=== PATIENT | male | born 1945 | race Caucasian/White ===

== ENCOUNTER 2017-10-14 11:33 | Inpatient (IN) ==
[2017-10-14] MEDS ORDERED: SODIUM CHLORIDE 0.9% 500 ML IV STA (12:37)
[2017-10-14] MEDS ORDERED: ACETAMINOPHEN 500 MG TABLET PO STA (12:49)
[2017-10-14 12:56] LABS: Basophils % 0.7 % (0.0-0.8); Eosinophils # 0.1 10*3/uL (0.0-0.87); Eosinophils % 3.3 % (0.00-10.9); Hematocrit 42.5 VOL% (42.0-52.0); Hemoglobin 14.5 GM/DL (14.0-18.0); Immature Granulocytes % 0.7 %; Immature Granulocytes Absolute 0.03 #; Lymphocytes # 0.9 10*3/uL (1.4-4.0); Lymphocytes % 20.3 % (21.2-54.2); Mean Corpuscular HGB Conc 34.1 GM/DL (32-36); Mean Corpuscular Hemoglobin 33 PG (27-34); Mean Corpuscular Volume 95.3 FL (87-102); Mean Platelet Volume 9.9 FL (9.6-12.0); Monocytes # 0.4 10*3/uL (0.11-0.8); Monocytes % 9.1 % (1.7-12.7); Neutrophils # 2.8 10*3/uL (1.4-7.4); Neutrophils % 65.9 % (38.7-73.9); Platelet Count 106 T/CUMM (130-400); Red Blood Count 4.46 MC/CUMM (3.8-5.5); Red Cell Distribution Width 12.3 % (9.3-17.3); White Blood Count 4.3 T/CUMM (4-12)
[2017-10-14 13:05] LABS: PT Patient Result 10.9 SECS
[2017-10-14 13:11] LABS: Alanine Aminotransferase 45 U/L (16-61); Albumin 3.5 G/DL (3.4-5.0); Alkaline Phosphatase 70 U/L (45-117); Aspartate Amino Transferase 27 U/L (0-37); Blood Urea Nitrogen 16 MG/DL (7-18); Calcium 8.9 MG/DL (8.5-10.1); Glucose 154 MG/DL (74-106); Osmolality,Calculated 284.3 MOS/KG (273-304); Sodium 141 MMOL/L (136-145); Total Protein 6.5 G/DL (6.4-8.3); Troponin I Only < 0.015 NG/ML (0.00-0.045)
[2017-10-14] MEDS ORDERED: ACETAMINOPHEN 325 MG TABLET PO PRN (16:08)
[2017-10-14] MEDS ORDERED: GLUCAGON 1 MG VIAL IM PRN (16:08)
[2017-10-14] MEDS ORDERED: MORPHINE 4 MG/1 ML VIAL IV PRN (16:08)
[2017-10-14] MEDS ORDERED: ONDANSETRON 4 MG/2 ML VIAL IV PRN (16:08)
[2017-10-14] MEDS ORDERED: DEXTROSE 50% 25 GM/50 ML VIAL IV PRN (16:08)
[2017-10-14] MEDS: INSULIN REGULAR 100 UNIT/ML SUBCUT SCH ×2 (16:48→21:26)
[2017-10-14] MEDS: SODIUM CHLORIDE 0.9% 1,000 ML IV SCH (17:06)
[2017-10-14 17:10] LABS: Troponin I Only < 0.015 NG/ML (0.00-0.045)
[2017-10-14] MEDS ORDERED: GLIMEPIRIDE 2 MG TABLET PO SCH (21:00)
[2017-10-14] MEDS: POTASSIUM CITRATE 10 MEQ TABLET PO SCH (21:25)
[2017-10-14] MEDS: ENOXAPARIN 40 MG/0.4 ML SYRINGE SUBCUT SCH (21:25)
[2017-10-14] MEDS: LISINOPRIL 20 MG TABLET PO SCH (21:25)
[2017-10-14] MEDS: hydrALAZINE 25 MG TABLET PO SCH (21:26)
[2017-10-14] MEDS: CARVEDILOL 25 MG TABLET PO SCH (21:26)
[2017-10-14] MEDS: DOCUSATE SODIUM 100 MG CAPSULE PO SCH (21:26)
[2017-10-14 22:30] LABS: Apearance,Urine CLEAR (Clear); Bilirubin,Urine Negative (Negative); Blood, Urine Negative (Negative); Glucose,Urine (UA) Negative (Negative); Ketones,Urine Negative (Negative); Nitrite,Urine Negative (Negative); Protein,Urine Negative; RBC,Urine 1 /HPF (0-4); Squamous Epithelial Cell,Urine Occasional /HPF (0-10); Urine Color Yellow (Yellow); Urine Specific Gravity 1.013 (1.001-1.035); Urine Urobilinogen < 2.0 EU/DL (0.2-1.0); WBC,Urine 4 /HPF (0-6)
[2017-10-15 02:14] LABS: Barbiturates Screen,Urine Negative (Negative); Benzodiazepines Screen,Urine Negative (Negative); Cannabinoid Screen,Urine Negative (Negative); Opiate Screen,Urine Negative (Negative); Phencyclidine Screen,Urine Negative (Negative)
[2017-10-15 05:02] LABS: Basophils % 0.3 % (0.0-0.8); Eosinophils # 0.2 10*3/uL (0.0-0.87); Eosinophils % 4.6 % (0.00-10.9); Hematocrit 42.4 VOL% (42.0-52.0); Hemoglobin 13.8 GM/DL (14.0-18.0); Immature Granulocytes % 0.6 %; Immature Granulocytes Absolute 0.02 #; Lymphocytes % 31.2 % (21.2-54.2); Mean Corpuscular HGB Conc 32.5 GM/DL (32-36); Mean Corpuscular Hemoglobin 32 PG (27-34); Monocytes # 0.3 10*3/uL (0.11-0.8); Monocytes % 7.6 % (1.7-12.7); Neutrophils # 1.8 10*3/uL (1.4-7.4); Neutrophils % 55.7 % (38.7-73.9); Platelet Count 105 T/CUMM (130-400); Red Blood Count 4.37 MC/CUMM (3.8-5.5); Red Cell Distribution Width 12.5 % (9.3-17.3); White Blood Count 3.3 T/CUMM (4-12)
[2017-10-15 05:36] LABS: Albumin 3.2 G/DL (3.4-5.0); Bilirubin,Total 0.6 MG/DL (0.2-1.0); Calcium 8.6 MG/DL (8.5-10.1); Osmolality,Calculated 280.4 MOS/KG (273-304); Potassium 3.6 MMOL/L (3.5-5.1); Risk Ratio 3.11; Total Protein 6.5 G/DL (6.4-8.3); VLDL CHOLESTEROL 17.4 MG/DL
[2017-10-15] MEDS: SODIUM CHLORIDE 0.9% 1,000 ML IV SCH ×3 (09:30→17:16)
[2017-10-15 09:54] LABS: Troponin I Only < 0.015 NG/ML (0.00-0.045)
[2017-10-15] MEDS: POTASSIUM CITRATE 10 MEQ TABLET PO SCH ×2 (11:42→22:09)
[2017-10-15] MEDS: FUROSEMIDE 20 MG TABLET PO SCH (11:42)
[2017-10-15] MEDS: amLODIPine 5 MG TABLET PO SCH (11:42)
[2017-10-15] MEDS: MULTIVITAMIN (CENTRUM) TABLET PO SCH (11:42)
[2017-10-15] MEDS: FLUoxetine 20 MG CAPSULE PO SCH (11:42)
[2017-10-15] MEDS: PANTOPRAZOLE 40 MG TABLET PO SCH (11:42)
[2017-10-15] MEDS: ALLOPURINOL 300 MG TABLET PO SCH (11:43)
[2017-10-15] MEDS: hydrALAZINE 25 MG TABLET PO SCH ×2 (11:43→22:09)
[2017-10-15] MEDS: LISINOPRIL 20 MG TABLET PO SCH ×2 (11:43→22:09)
[2017-10-15] MEDS: LORATADINE 10 MG TABLET PO SCH (11:43)
[2017-10-15] MEDS: CARVEDILOL 25 MG TABLET PO SCH ×2 (11:43→17:03)
[2017-10-15] MEDS: INSULIN REGULAR 100 UNIT/ML SUBCUT SCH ×4 (11:44→22:02)
[2017-10-15] MEDS: DOCUSATE SODIUM 100 MG CAPSULE PO SCH ×2 (11:49→22:10)
[2017-10-15] MEDS: ENOXAPARIN 40 MG/0.4 ML SYRINGE SUBCUT SCH (22:09)
[2017-10-16 04:44] LABS: Basophils % 0.3 % (0.0-0.8); Eosinophils # 0.2 10*3/uL (0.0-0.87); Eosinophils % 4.5 % (0.00-10.9); Hematocrit 40.2 VOL% (42.0-52.0); Hemoglobin 13.7 GM/DL (14.0-18.0); Immature Granulocytes % 0.6 %; Immature Granulocytes Absolute 0.02 #; Lymphocytes # 1.2 10*3/uL (1.4-4.0); Lymphocytes % 34.5 % (21.2-54.2); Mean Corpuscular HGB Conc 34.1 GM/DL (32-36); Mean Corpuscular Hemoglobin 33 PG (27-34); Mean Corpuscular Volume 95.7 FL (87-102); Mean Platelet Volume 9.9 FL (9.6-12.0); Monocytes # 0.2 10*3/uL (0.11-0.8); Monocytes % 6.8 % (1.7-12.7); Neutrophils # 1.9 10*3/uL (1.4-7.4); Neutrophils % 53.3 % (38.7-73.9); Platelet Count 100 T/CUMM (130-400); Red Cell Distribution Width 12.3 % (9.3-17.3); White Blood Count 3.5 T/CUMM (4-12)
[2017-10-16 05:06] LABS: Hypochromasia Slight
[2017-10-16 05:07] LABS: Microcytosis 1+; Platelet Estimate Decreased
[2017-10-16 05:13] LABS: Calcium 8.4 MG/DL (8.5-10.1); Osmolality,Calculated 280.3 MOS/KG (273-304); Potassium 3.4 MMOL/L (3.5-5.1)
[2017-10-16] MEDS: INSULIN REGULAR 100 UNIT/ML SUBCUT SCH ×3 (08:41→17:05)
[2017-10-16] MEDS: SODIUM CHLORIDE 0.9% 1,000 ML IV SCH (09:11)
[2017-10-16] MEDS ORDERED: POTASSIUM CHLORIDE 20 MEQ TABLET PO PRN (10:01)
[2017-10-16] MEDS ORDERED: DEXTROSE 50% 25 GM/50 ML VIAL IV PRN (10:36)
[2017-10-16] MEDS ORDERED: GLUCAGON 1 MG VIAL IM PRN (10:36)
[2017-10-16] MEDS: CARVEDILOL 25 MG TABLET PO SCH ×2 (14:13→18:27)
[2017-10-16] MEDS: hydrALAZINE 25 MG TABLET PO SCH (14:14)
[2017-10-16] MEDS: LORATADINE 10 MG TABLET PO SCH (14:14)
[2017-10-16] MEDS: MULTIVITAMIN (CENTRUM) TABLET PO SCH (14:14)
[2017-10-16] MEDS: DOCUSATE SODIUM 100 MG CAPSULE PO SCH (14:14)
[2017-10-16] MEDS: FUROSEMIDE 20 MG TABLET PO SCH (14:14)
[2017-10-16] MEDS: PANTOPRAZOLE 40 MG TABLET PO SCH (14:15)
[2017-10-16] MEDS: LISINOPRIL 20 MG TABLET PO SCH (14:15)
[2017-10-16] MEDS: amLODIPine 5 MG TABLET PO SCH (14:15)
[2017-10-16] MEDS: POTASSIUM CITRATE 10 MEQ TABLET PO SCH (14:15)
[2017-10-16] MEDS: FLUoxetine 20 MG CAPSULE PO SCH (14:16)
[2017-10-16] MEDS: ALLOPURINOL 300 MG TABLET PO SCH (14:18)
[2017-10-16 17:24] VITALS: BP 119/60
== END 2017-10-16 18:31 | disposition home or self-care (01) | DRG 923 ==
LOC: N.ED 11:33 → N.EDINP 14:08 → N.TELES 17:50
PROVIDERS: ADMIT Family Medicine; ATTEND Family Medicine

== ENCOUNTER 2020-10-03 17:05 | Inpatient (IN) ==
[2020-10-03 17:57] LABS: Basophils % 0.2 % (0.0-0.8); Eosinophils % 0.2 % (0.00-10.9); Hematocrit 47.2 VOL% (42.0-52.0); Hemoglobin 15.7 GM/DL (14.0-18.0); Immature Granulocytes % 0.9 %; Immature Granulocytes Absolute 0.09 #; Lymphocytes # 0.5 10*3/uL (1.4-4.0); Mean Corpuscular HGB Conc 33.3 GM/DL (32-36); Mean Corpuscular Volume 96.1 FL (87-102); Mean Platelet Volume 9.3 FL (9.6-12.0); Monocytes % 6.8 % (1.7-12.7); Neutrophils % 86.9 % (38.7-73.9); Platelet Count 102 T/CUMM (130-400); Red Blood Count 4.91 MC/CUMM (3.8-5.5); Red Cell Distribution Width 12.4 % (9.3-17.3); White Blood Count 10.6 T/CUMM (4-12)
[2020-10-03 18:22] LABS: Calcium 9.1 MG/DL (8.5-10.1); Osmolality,Calculated 283.5 MOS/KG (273-304); Potassium 3.7 MMOL/L (3.5-5.1); Total Protein 7.3 G/DL (6.4-8.2)
[2020-10-03] MEDS ORDERED: SODIUM CHLORIDE 0.9% 500 ML IV STA (18:44)
[2020-10-03] MEDS ORDERED: ACETAMINOPHEN 500 MG TABLET PO STA (18:44)
[2020-10-03] MEDS ORDERED: PIPERACILLIN/TAZOBACTAM 3,375 MG in SODIUM CHLORIDE 0.9% 100 ML IV STA (18:46)
[2020-10-03] MEDS ORDERED: ONDANSETRON 4 MG/2 ML VIAL IV STA (19:08)
[2020-10-03] MEDS ORDERED: OSELTAMIVIR 75 MG CAPSULE PO ONE (20:18)
[2020-10-03] MEDS ORDERED: PROMETHAZINE 25 MG/1 ML VIAL IM STA (20:54)
[2020-10-03] MEDS ORDERED: IBUPROFEN 800 MG TABLET PO STA (21:51)
[2020-10-03] MEDS ORDERED: SODIUM CHLORIDE 0.9% 1,000 ML IV STA (21:57)
[2020-10-03 22:07] LABS: Bilirubin,Urine Negative (Negative); Blood, Urine Small mg/dL (Negative); Glucose,Urine (UA) Negative (Negative); Ketones,Urine 5 mg/dL (Negative); Mucus,Urine Occasional /LPF (Occasional); Nitrite,Urine Negative (Negative); Protein,Urine 30 MG/DL; RBC,Urine 3 /HPF (0-4); Squamous Epithelial Cell,Urine Occasional /HPF (0-10); Urine Appearance CLEAR (Clear); Urine Color Yellow (Yellow); Urine Specific Gravity 1.029 (1.001-1.035); Urine Urobilinogen < 2.0 EU/DL (0.2-1.0)
[2020-10-03] MEDS ORDERED: GLUCAGON 1 MG VIAL IM PRN (23:52)
[2020-10-03] MEDS ORDERED: DEXTROSE 50% 25 GM/50 ML VIAL IV PRN (23:52)
[2020-10-03] MEDS ORDERED: MORPHINE 4 MG/1 ML VIAL IV PRN (23:52)
[2020-10-03] MEDS ORDERED: PROMETHAZINE 25 MG/1 ML VIAL IM PRN (23:52)
[2020-10-03] MEDS ORDERED: ONDANSETRON 4 MG/2 ML VIAL IV PRN (23:52)
[2020-10-04 00:13] LABS: Troponin I < 0.015 NG/ML (0.00-0.045)
[2020-10-04] MEDS: INSULIN REGULAR 100 UNIT/ML SUBCUT SCH ×4 (00:22→17:10)
[2020-10-04] MEDS: ACETAMINOPHEN 325 MG TABLET PO PRN ×3 (05:29→16:02)
[2020-10-04 06:08] LABS: Basophils % 0.2 % (0.0-0.8); Hematocrit 42.4 VOL% (42.0-52.0); Hemoglobin 14.1 GM/DL (14.0-18.0); Immature Granulocytes % 0.5 %; Immature Granulocytes Absolute 0.05 #; Lymphocytes # 0.5 10*3/uL (1.4-4.0); Lymphocytes % 5.1 % (21.2-54.2); Mean Corpuscular HGB Conc 33.3 GM/DL (32-36); Mean Corpuscular Volume 96.8 FL (87-102); Mean Platelet Volume 9.6 FL (9.6-12.0); Monocytes % 4.4 % (1.7-12.7); Neutrophils % 89.8 % (38.7-73.9); Platelet Count 85 T/CUMM (130-400); Red Blood Count 4.38 MC/CUMM (3.8-5.5); Red Cell Distribution Width 12.7 % (9.3-17.3); White Blood Count 9.3 T/CUMM (4-12)
[2020-10-04 06:39] LABS: Albumin 3.3 G/DL (3.4-5.0); Bilirubin,Total 0.7 MG/DL (0.2-1.0); Calcium 8.5 MG/DL (8.5-10.1); Osmolality,Calculated 284.3 MOS/KG (273-304); Potassium 3.7 MMOL/L (3.5-5.1); Risk Ratio 2.69; Total Protein 6.7 G/DL (6.4-8.2)
[2020-10-04 06:40] LABS: Band Neutrophils 2 % (0-10); Lymphocytes 3 % (20-55); Platelet Estimate Decreased; Segmented Neutrophils 92 % (50-85); Total Cells Counted 100
[2020-10-04] MEDS ORDERED: PANTOPRAZOLE 40 MG VIAL IV SCH (09:00)
[2020-10-04] MEDS: SODIUM CHLORIDE 0.9% 1,000 ML IV SCH ×3 (09:01→16:04)
[2020-10-04] MEDS: POTASSIUM CITRATE 10 MEQ TABLET PO SCH ×2 (09:17→20:46)
[2020-10-04] MEDS: ENOXAPARIN 40 MG/0.4 ML SYRINGE SUBCUT SCH (09:17)
[2020-10-04] MEDS: allopurinoL 300 MG TABLET PO SCH (09:18)
[2020-10-04] MEDS: carvediloL 25 MG TABLET PO SCH ×2 (09:18→20:48)
[2020-10-04] MEDS: GLIMEPIRIDE 2 MG TABLET PO SCH ×2 (09:18→20:48)
[2020-10-04] MEDS: LORATADINE 10 MG TABLET PO SCH (09:18)
[2020-10-04] MEDS: lisinopriL 20 MG TABLET PO SCH ×2 (09:18→20:47)
[2020-10-04] MEDS: MULTIVITAMIN (CENTRUM) TABLET PO SCH (09:18)
[2020-10-04] MEDS: amLODIPine 5 MG TABLET PO SCH (09:18)
[2020-10-04] MEDS: FUROSEMIDE 20 MG TABLET PO SCH ×2 (09:19→20:47)
[2020-10-04] MEDS: DOCUSATE SODIUM 100 MG CAPSULE PO SCH ×2 (09:19→20:46)
[2020-10-04] MEDS: hydrALAZINE 25 MG TABLET PO SCH ×2 (09:19→20:48)
[2020-10-04] MEDS: FLUoxetine 20 MG CAPSULE PO SCH (09:19)
[2020-10-04] MEDS: KETOCONAZOLE 2% CREAM 30 GM TUBE TOP SCH (09:23)
[2020-10-04] MEDS: OSELTAMIVIR 75 MG CAPSULE PO SCH ×2 (09:23→20:48)
[2020-10-04] MEDS ORDERED: POTASSIUM CHLORIDE 20 MEQ TABLET PO ONE (16:28)
[2020-10-04] MEDS: PIPERACILLIN/TAZOBACTAM 3,375 MG in SODIUM CHLORIDE 0.9% 100 ML IV SCH (17:03)
[2020-10-04] MEDS: ACETAMINOPHEN 500 MG TABLET PO PRN (20:47)
[2020-10-04] MEDS ORDERED: OXYMETAZOLINE 0.05% NASAL SPRAY 15 ML BOTTLE BOTH NARES PRN (21:38)
[2020-10-04] MEDS: LOPERAMIDE 2 MG CAPSULE PO PRN (22:48)
[2020-10-05] MEDS: PIPERACILLIN/TAZOBACTAM 3,375 MG in SODIUM CHLORIDE 0.9% 100 ML IV SCH ×3 (00:19→16:41)
[2020-10-05] MEDS: INSULIN REGULAR 100 UNIT/ML SUBCUT SCH ×4 (00:19→19:23)
[2020-10-05] MEDS: PANTOPRAZOLE 40 MG TABLET PO SCH (05:54)
[2020-10-05 07:10] LABS: Basophils % 0.4 % (0.0-0.8); Eosinophils % 0.4 % (0.00-10.9); Hematocrit 43.8 VOL% (42.0-52.0); Hemoglobin 14.4 GM/DL (14.0-18.0); Immature Granulocytes % 0.9 %; Immature Granulocytes Absolute 0.06 #; Lymphocytes # 0.7 10*3/uL (1.4-4.0); Lymphocytes % 10.5 % (21.2-54.2); Mean Corpuscular HGB Conc 32.9 GM/DL (32-36); Mean Corpuscular Volume 98.6 FL (87-102); Mean Platelet Volume 9.6 FL (9.6-12.0); Monocytes % 5.9 % (1.7-12.7); Neutrophils % 81.9 % (38.7-73.9); Platelet Count 77 T/CUMM (130-400); Red Blood Count 4.44 MC/CUMM (3.8-5.5); Red Cell Distribution Width 12.9 % (9.3-17.3); White Blood Count 6.8 T/CUMM (4-12)
[2020-10-05 07:16] LABS: Band Neutrophils 1 % (0-10); Lymphocytes 13 % (20-55); Platelet Estimate Decreased; Segmented Neutrophils 80 % (50-85); Total Cells Counted 100
[2020-10-05 08:19] LABS: Osmolality,Calculated 277.5 MOS/KG (273-304); Potassium 4.1 MMOL/L (3.5-5.1)
[2020-10-05] MEDS: OSELTAMIVIR 75 MG CAPSULE PO SCH ×2 (08:22→21:22)
[2020-10-05] MEDS: MULTIVITAMIN (CENTRUM) TABLET PO SCH (08:22)
[2020-10-05] MEDS: FLUoxetine 20 MG CAPSULE PO SCH (08:22)
[2020-10-05] MEDS: allopurinoL 300 MG TABLET PO SCH (08:22)
[2020-10-05] MEDS: GLIMEPIRIDE 2 MG TABLET PO SCH ×2 (08:22→21:22)
[2020-10-05] MEDS: amLODIPine 5 MG TABLET PO SCH (08:22)
[2020-10-05] MEDS: KETOCONAZOLE 2% CREAM 30 GM TUBE TOP SCH (08:22)
[2020-10-05] MEDS: hydrALAZINE 25 MG TABLET PO SCH ×2 (08:22→21:23)
[2020-10-05] MEDS: lisinopriL 20 MG TABLET PO SCH ×2 (08:22→21:22)
[2020-10-05] MEDS: FUROSEMIDE 20 MG TABLET PO SCH ×2 (08:22→21:23)
[2020-10-05] MEDS: LORATADINE 10 MG TABLET PO SCH (08:23)
[2020-10-05] MEDS: carvediloL 25 MG TABLET PO SCH ×2 (08:23→21:22)
[2020-10-05] MEDS: ENOXAPARIN 40 MG/0.4 ML SYRINGE SUBCUT SCH (08:23)
[2020-10-05] MEDS: DOCUSATE SODIUM 100 MG CAPSULE PO SCH ×2 (09:13→21:22)
[2020-10-05] MEDS ORDERED: AZELASTINE NASAL 137 MCG/SPRAY 30 ML BOTTLE BOTH NARES PRN (09:17)
[2020-10-05] MEDS: POTASSIUM CITRATE 10 MEQ TABLET PO SCH ×2 (09:24→21:22)
[2020-10-05] MEDS: ACETAMINOPHEN 500 MG TABLET PO PRN ×2 (12:18→20:23)
[2020-10-05] MEDS: VANCOMYCIN INJ 2,000 MG in SODIUM CHLORIDE 0.9% 500 ML IV SCH (13:13)
[2020-10-05] MEDS: SODIUM CHLORIDE 0.9% 1,000 ML IV SCH ×2 (15:48→18:35)
[2020-10-06] MEDS: VANCOMYCIN INJ 2,000 MG in SODIUM CHLORIDE 0.9% 500 ML IV SCH (00:23)
[2020-10-06] MEDS: INSULIN REGULAR 100 UNIT/ML SUBCUT SCH ×5 (00:24→23:50)
[2020-10-06] MEDS: PIPERACILLIN/TAZOBACTAM 3,375 MG in SODIUM CHLORIDE 0.9% 100 ML IV SCH ×4 (02:36→23:50)
[2020-10-06] MEDS: PANTOPRAZOLE 40 MG TABLET PO SCH (06:02)
[2020-10-06] MEDS: DOCUSATE SODIUM 100 MG CAPSULE PO SCH ×2 (08:48→20:53)
[2020-10-06] MEDS: MULTIVITAMIN (CENTRUM) TABLET PO SCH (08:49)
[2020-10-06] MEDS: OSELTAMIVIR 75 MG CAPSULE PO SCH ×2 (08:50→20:52)
[2020-10-06] MEDS: FUROSEMIDE 20 MG TABLET PO SCH ×2 (08:50→20:52)
[2020-10-06] MEDS: LOPERAMIDE 2 MG CAPSULE PO PRN ×2 (08:50→20:52)
[2020-10-06] MEDS: POTASSIUM CITRATE 10 MEQ TABLET PO SCH ×2 (08:50→20:51)
[2020-10-06] MEDS: amLODIPine 5 MG TABLET PO SCH (08:50)
[2020-10-06] MEDS: FLUoxetine 20 MG CAPSULE PO SCH (08:51)
[2020-10-06] MEDS: lisinopriL 20 MG TABLET PO SCH ×2 (08:51→20:51)
[2020-10-06] MEDS: hydrALAZINE 25 MG TABLET PO SCH ×2 (08:51→20:52)
[2020-10-06] MEDS: LORATADINE 10 MG TABLET PO SCH (08:51)
[2020-10-06] MEDS: allopurinoL 300 MG TABLET PO SCH (08:51)
[2020-10-06] MEDS: GLIMEPIRIDE 2 MG TABLET PO SCH ×2 (08:51→20:51)
[2020-10-06] MEDS: ENOXAPARIN 40 MG/0.4 ML SYRINGE SUBCUT SCH (08:51)
[2020-10-06] MEDS: carvediloL 25 MG TABLET PO SCH ×2 (08:51→20:52)
[2020-10-06] MEDS: ACETAMINOPHEN 325 MG TABLET PO PRN (08:55)
[2020-10-06] MEDS: KETOCONAZOLE 2% CREAM 30 GM TUBE TOP SCH (09:37)
[2020-10-06] MEDS: ACETAMINOPHEN 500 MG TABLET PO PRN ×2 (12:18→20:53)
[2020-10-06] MEDS: SODIUM CHLORIDE 0.9% 1,000 ML IV SCH (14:44)
[2020-10-06] MEDS ORDERED: VANCOMYCIN INJ 2,000 MG in SODIUM CHLORIDE 0.9% 500 ML IV SCH (20:00)
[2020-10-07] MEDS: ACETAMINOPHEN 500 MG TABLET PO PRN ×2 (02:13→08:32)
[2020-10-07 05:15] LABS: Basophils % 0.3 % (0.0-0.8); Eosinophils # 0.1 10*3/uL (0.0-0.87); Hematocrit 38.2 VOL% (42.0-52.0); Immature Granulocytes Absolute 0.06 #; Lymphocytes # 0.9 10*3/uL (1.4-4.0); Lymphocytes % 15.2 % (21.2-54.2); Mean Corpuscular Volume 94.3 FL (87-102); Mean Platelet Volume 9.9 FL (9.6-12.0); Monocytes % 5.8 % (1.7-12.7); Neutrophils % 75.7 % (38.7-73.9); Platelet Count 88 T/CUMM (130-400); Red Blood Count 4.05 MC/CUMM (3.8-5.5); Red Cell Distribution Width 12.6 % (9.3-17.3)
[2020-10-07 05:38] LABS: Platelet Estimate Decreased
[2020-10-07 05:41] LABS: Albumin 2.7 G/DL (3.4-5.0); Bilirubin,Total 0.7 MG/DL (0.2-1.0); Calcium 8.9 MG/DL (8.5-10.1); Osmolality,Calculated 281.4 MOS/KG (273-304); Potassium 3.3 MMOL/L (3.5-5.1); Total Protein 6.4 G/DL (6.4-8.2)
[2020-10-07] MEDS: PANTOPRAZOLE 40 MG TABLET PO SCH (06:11)
[2020-10-07] MEDS: INSULIN REGULAR 100 UNIT/ML SUBCUT SCH ×4 (06:11→20:54)
[2020-10-07] MEDS ORDERED: POTASSIUM CHLORIDE 20 MEQ TABLET PO ONE (09:15)
[2020-10-07] MEDS: allopurinoL 300 MG TABLET PO SCH (09:16)
[2020-10-07] MEDS: FLUoxetine 20 MG CAPSULE PO SCH (09:16)
[2020-10-07] MEDS: carvediloL 25 MG TABLET PO SCH ×2 (09:16→20:53)
[2020-10-07] MEDS: FUROSEMIDE 20 MG TABLET PO SCH ×2 (09:16→20:53)
[2020-10-07] MEDS: GLIMEPIRIDE 2 MG TABLET PO SCH ×2 (09:16→20:53)
[2020-10-07] MEDS: amLODIPine 5 MG TABLET PO SCH (09:16)
[2020-10-07] MEDS: LOPERAMIDE 2 MG CAPSULE PO PRN ×2 (09:17→20:52)
[2020-10-07] MEDS: OSELTAMIVIR 75 MG CAPSULE PO SCH ×2 (09:17→20:53)
[2020-10-07] MEDS: ENOXAPARIN 40 MG/0.4 ML SYRINGE SUBCUT SCH (09:17)
[2020-10-07] MEDS: MULTIVITAMIN (CENTRUM) TABLET PO SCH (09:17)
[2020-10-07] MEDS: LORATADINE 10 MG TABLET PO SCH (09:17)
[2020-10-07] MEDS: hydrALAZINE 25 MG TABLET PO SCH ×2 (09:17→20:53)
[2020-10-07] MEDS: PIPERACILLIN/TAZOBACTAM 3,375 MG in SODIUM CHLORIDE 0.9% 100 ML IV SCH (09:17)
[2020-10-07] MEDS: POTASSIUM CITRATE 10 MEQ TABLET PO SCH ×2 (09:17→21:06)
[2020-10-07] MEDS: KETOCONAZOLE 2% CREAM 30 GM TUBE TOP SCH (09:18)
[2020-10-07] MEDS: DOCUSATE SODIUM 100 MG CAPSULE PO SCH ×2 (09:18→20:50)
[2020-10-07] MEDS: lisinopriL 20 MG TABLET PO SCH ×2 (09:25→20:53)
[2020-10-07] MEDS ORDERED: methylPREDNISolone SOD SUC 125 MG/2 ML VIAL IV ONE (10:00)
[2020-10-07] MEDS: cefTRIAXone 2,000 MG in SODIUM CHLORIDE 0.9% 100 ML IV SCH (11:47)
[2020-10-07] MEDS: ACETAMINOPHEN 325 MG TABLET PO PRN (20:53)
[2020-10-07] MEDS: methylPREDNISolone SOD SUC 40 MG/1 ML VIAL IV SCH (20:54)
[2020-10-08] MEDS: PANTOPRAZOLE 40 MG TABLET PO SCH (05:35)
[2020-10-08] MEDS: methylPREDNISolone SOD SUC 40 MG/1 ML VIAL IV SCH ×2 (08:56→20:47)
[2020-10-08] MEDS: INSULIN REGULAR 100 UNIT/ML SUBCUT SCH ×4 (08:56→20:45)
[2020-10-08] MEDS: ENOXAPARIN 40 MG/0.4 ML SYRINGE SUBCUT SCH (08:56)
[2020-10-08] MEDS: FUROSEMIDE 20 MG TABLET PO SCH ×2 (08:57→20:45)
[2020-10-08] MEDS: FLUoxetine 20 MG CAPSULE PO SCH (08:57)
[2020-10-08] MEDS: amLODIPine 5 MG TABLET PO SCH (08:57)
[2020-10-08] MEDS: GLIMEPIRIDE 2 MG TABLET PO SCH ×2 (08:57→20:45)
[2020-10-08] MEDS: allopurinoL 300 MG TABLET PO SCH (08:58)
[2020-10-08] MEDS: hydrALAZINE 25 MG TABLET PO SCH ×2 (08:58→20:45)
[2020-10-08] MEDS: lisinopriL 20 MG TABLET PO SCH ×2 (08:58→20:44)
[2020-10-08] MEDS: DOCUSATE SODIUM 100 MG CAPSULE PO SCH ×2 (08:58→22:28)
[2020-10-08] MEDS: OSELTAMIVIR 75 MG CAPSULE PO SCH ×2 (08:58→20:45)
[2020-10-08] MEDS: LORATADINE 10 MG TABLET PO SCH (08:58)
[2020-10-08] MEDS: KETOCONAZOLE 2% CREAM 30 GM TUBE TOP SCH (08:59)
[2020-10-08] MEDS: carvediloL 25 MG TABLET PO SCH ×2 (09:02→20:45)
[2020-10-08] MEDS: MULTIVITAMIN (CENTRUM) TABLET PO SCH (09:02)
[2020-10-08] MEDS: POTASSIUM CITRATE 10 MEQ TABLET PO SCH ×2 (10:48→20:45)
[2020-10-08] MEDS: cefTRIAXone 2,000 MG in SODIUM CHLORIDE 0.9% 100 ML IV SCH (10:54)
[2020-10-08] MEDS: ACETAMINOPHEN 500 MG TABLET PO PRN (10:56)
[2020-10-08 12:04] LABS: Basophils % 0.1 % (0.0-0.8); Hematocrit 39.9 VOL% (42.0-52.0); Hemoglobin 13.4 GM/DL (14.0-18.0); Immature Granulocytes % 2.8 %; Immature Granulocytes Absolute 0.19 #; Lymphocytes # 0.7 10*3/uL (1.4-4.0); Lymphocytes % 10.2 % (21.2-54.2); Mean Corpuscular HGB Conc 33.6 GM/DL (32-36); Mean Corpuscular Volume 94.3 FL (87-102); Mean Platelet Volume 9.1 FL (9.6-12.0); Monocytes % 3.8 % (1.7-12.7); Neutrophils % 83.1 % (38.7-73.9); Platelet Count 123 T/CUMM (130-400); Red Blood Count 4.23 MC/CUMM (3.8-5.5); Red Cell Distribution Width 12.3 % (9.3-17.3); White Blood Count 6.8 T/CUMM (4-12)
[2020-10-08 12:29] LABS: Albumin 2.9 G/DL (3.4-5.0); Bilirubin,Total 0.4 MG/DL (0.2-1.0); Calcium 9.7 MG/DL (8.5-10.1); Osmolality,Calculated 286.7 MOS/KG (273-304); Potassium 3.8 MMOL/L (3.5-5.1); Total Protein 7.1 G/DL (6.4-8.2)
[2020-10-08] MEDS: ACETAMINOPHEN 325 MG TABLET PO PRN (20:44)
[2020-10-08] MEDS: LOPERAMIDE 2 MG CAPSULE PO PRN (20:45)
[2020-10-09] MEDS: PANTOPRAZOLE 40 MG TABLET PO SCH (05:48)
[2020-10-09 06:25] LABS: Basophils % 0.3 % (0.0-0.8); Hematocrit 39.5 VOL% (42.0-52.0); Hemoglobin 13.1 GM/DL (14.0-18.0); Immature Granulocytes % 5.4 %; Immature Granulocytes Absolute 0.37 #; Lymphocytes # 0.7 10*3/uL (1.4-4.0); Lymphocytes % 10.7 % (21.2-54.2); Mean Corpuscular HGB Conc 33.2 GM/DL (32-36); Mean Corpuscular Volume 96.1 FL (87-102); Mean Platelet Volume 9.7 FL (9.6-12.0); Monocytes % 2.6 % (1.7-12.7); Platelet Count 122 T/CUMM (130-400); Red Blood Count 4.11 MC/CUMM (3.8-5.5); Red Cell Distribution Width 12.3 % (9.3-17.3); White Blood Count 6.9 T/CUMM (4-12)
[2020-10-09 06:50] LABS: Albumin 2.9 G/DL (3.4-5.0); Bilirubin,Total 0.5 MG/DL (0.2-1.0); Calcium 9.5 MG/DL (8.5-10.1); Osmolality,Calculated 286.7 MOS/KG (273-304); Potassium 3.8 MMOL/L (3.5-5.1)
[2020-10-09 07:04] LABS: Lymphocytes 7 % (20-55); Metamyelocytes 1 %; Segmented Neutrophils 85 % (50-85); Total Cells Counted 100
[2020-10-09 07:05] LABS: Platelet Estimate Adequate; Polychromasia Slight; Tear Drop Cells Few
[2020-10-09] MEDS: INSULIN REGULAR 100 UNIT/ML SUBCUT SCH ×4 (08:55→21:09)
[2020-10-09] MEDS: ENOXAPARIN 40 MG/0.4 ML SYRINGE SUBCUT SCH (08:56)
[2020-10-09] MEDS: methylPREDNISolone SOD SUC 40 MG/1 ML VIAL IV SCH ×2 (08:56→21:11)
[2020-10-09] MEDS: OSELTAMIVIR 75 MG CAPSULE PO SCH (08:56)
[2020-10-09] MEDS: carvediloL 25 MG TABLET PO SCH ×2 (08:56→21:10)
[2020-10-09] MEDS: FLUoxetine 20 MG CAPSULE PO SCH (08:56)
[2020-10-09] MEDS: amLODIPine 5 MG TABLET PO SCH (08:56)
[2020-10-09] MEDS: LORATADINE 10 MG TABLET PO SCH (08:57)
[2020-10-09] MEDS: GLIMEPIRIDE 2 MG TABLET PO SCH ×2 (08:57→21:10)
[2020-10-09] MEDS: allopurinoL 300 MG TABLET PO SCH (08:57)
[2020-10-09] MEDS: hydrALAZINE 25 MG TABLET PO SCH (08:57)
[2020-10-09] MEDS: FUROSEMIDE 20 MG TABLET PO SCH ×2 (08:57→21:10)
[2020-10-09] MEDS: lisinopriL 20 MG TABLET PO SCH ×2 (08:57→21:10)
[2020-10-09] MEDS: KETOCONAZOLE 2% CREAM 30 GM TUBE TOP SCH (08:58)
[2020-10-09] MEDS: DOCUSATE SODIUM 100 MG CAPSULE PO SCH ×2 (08:58→21:07)
[2020-10-09] MEDS: MULTIVITAMIN (CENTRUM) TABLET PO SCH (09:00)
[2020-10-09] MEDS: LOPERAMIDE 2 MG CAPSULE PO PRN ×2 (09:08→21:10)
[2020-10-09] MEDS: cefTRIAXone 2,000 MG in SODIUM CHLORIDE 0.9% 100 ML IV SCH (11:53)
[2020-10-09] MEDS: POTASSIUM CITRATE 10 MEQ TABLET PO SCH (12:19)
[2020-10-09] MEDS: POTASSIUM CHLORIDE 20 MEQ TABLET PO SCH ×2 (12:28→21:10)
[2020-10-09] MEDS: ACETAMINOPHEN 325 MG TABLET PO PRN (21:10)
[2020-10-10 05:12] LABS: Basophils # 0.1 10*3/uL (0.0-0.2); Basophils % 0.8 % (0.0-0.8); Hematocrit 40.6 VOL% (42.0-52.0); Hemoglobin 13.9 GM/DL (14.0-18.0); Immature Granulocytes % 9.6 %; Immature Granulocytes Absolute 0.63 #; Lymphocytes # 0.8 10*3/uL (1.4-4.0); Lymphocytes % 12.4 % (21.2-54.2); Mean Corpuscular HGB Conc 34.2 GM/DL (32-36); Mean Platelet Volume 9.3 FL (9.6-12.0); Monocytes % 2.7 % (1.7-12.7); Neutrophils % 74.5 % (38.7-73.9); Platelet Count 138 T/CUMM (130-400); Red Blood Count 4.32 MC/CUMM (3.8-5.5); Red Cell Distribution Width 12.1 % (9.3-17.3); White Blood Count 6.6 T/CUMM (4-12)
[2020-10-10 05:33] LABS: Calcium 9.3 MG/DL (8.5-10.1); Osmolality,Calculated 285.8 MOS/KG (273-304); Potassium 4.5 MMOL/L (3.5-5.1)
[2020-10-10 05:47] LABS: Hypochromasia 1+; Lymphocytes 13 % (20-55); Microcytosis 1+; Platelet Estimate Adequate; Segmented Neutrophils 82 % (50-85); Total Cells Counted 100
[2020-10-10] MEDS: PANTOPRAZOLE 40 MG TABLET PO SCH (06:25)
[2020-10-10 08:04] VITALS: BP 145/77
[2020-10-10] MEDS: INSULIN REGULAR 100 UNIT/ML SUBCUT SCH (08:33)
[2020-10-10] MEDS: methylPREDNISolone SOD SUC 40 MG/1 ML VIAL IV SCH (08:35)
[2020-10-10] MEDS: ENOXAPARIN 40 MG/0.4 ML SYRINGE SUBCUT SCH (08:37)
[2020-10-10] MEDS: carvediloL 25 MG TABLET PO SCH (08:38)
[2020-10-10] MEDS: DOCUSATE SODIUM 100 MG CAPSULE PO SCH ×2 (08:38→08:49)
[2020-10-10] MEDS: POTASSIUM CHLORIDE 20 MEQ TABLET PO SCH (08:38)
[2020-10-10] MEDS: allopurinoL 300 MG TABLET PO SCH (08:38)
[2020-10-10] MEDS: lisinopriL 20 MG TABLET PO SCH (08:38)
[2020-10-10] MEDS: LORATADINE 10 MG TABLET PO SCH (08:38)
[2020-10-10] MEDS: GLIMEPIRIDE 2 MG TABLET PO SCH (08:38)
[2020-10-10] MEDS: MULTIVITAMIN (CENTRUM) TABLET PO SCH (08:38)
[2020-10-10] MEDS: amLODIPine 5 MG TABLET PO SCH (08:39)
[2020-10-10] MEDS: FLUoxetine 20 MG CAPSULE PO SCH (08:39)
[2020-10-10] MEDS: LOPERAMIDE 2 MG CAPSULE PO PRN (08:39)
[2020-10-10] MEDS: FUROSEMIDE 20 MG TABLET PO SCH (08:40)
[2020-10-10] MEDS: KETOCONAZOLE 2% CREAM 30 GM TUBE TOP SCH (08:40)
[2020-10-10] MEDS: cefTRIAXone 2,000 MG in SODIUM CHLORIDE 0.9% 100 ML IV SCH (09:58)
== END 2020-10-10 11:19 | disposition home or self-care (01) | DRG 194 ==
LOC: N.ED 17:05 → N.EDINP 17:05 → N.TELES 22:52
PROVIDERS: ADMIT Family Medicine; ATTEND Family Medicine